=== PATIENT | male | born 1975 | race Caucasian/White ===

== ENCOUNTER → 2020-02-12 13:13 | Outpatient (CLI) | payer OTHER, SELFPAY ==
--- NOTE | 2020-02-12 13:21 | DI.RAD.S_ITS ---
PROCEDURE: FL ARTHROGRAM SHOULDER LT INDICATIONS: ROTATOR CUFF TEAR OF LEFT SHOULDER TECHNIQUE: The indications, alternatives, benefits, risks, and complications of the procedure were explained to the patient. Written informed consent was obtained and placed in the chart. The shoulder was examined fluoroscopically and a site for needle placement chosen for entry into the glenohumeral joint from an anterior approach. The skin was prepped and draped in a sterile fashion, and 1% lidocaine infiltrated from skin down to joint capsule. A spinal needle was inserted into the glenohumeral joint, and a small amount of iodinated contrast media injected to confirm intra-articular placement of the needle tip. This was followed by approximately 12 mL dilute solution of a gadolinium containing MR contrast agent. The needle was removed and a dressing was applied. The patient was given postprocedural instructions and sent to the MR suite for MR imaging. FINDINGS: A single fluoroscopic spot image demonstrates intra-articular location of injected iodinated contrast. IMPRESSION: Successful fluoroscopically guided administration of dilute Gadolinium solution into the shoulder joint for MR arthrogram. Dictated by: Ryan Conde M.D. on 02/12/2020 at 15:33 Approved by: Ryan Conde M.D. on 02/12/2020 at 15:33
--- NOTE | 2020-02-12 13:21 | DI.MRI.S_ITS ---
PROCEDURE: MR SHOULDER LT W CON INDICATIONS: ROTATOR CUFF TEAR OF LEFT SHOULDER TECHNIQUE: After the administration of 12 mL of dilute intra-articular Gadolinium contrast, oblique coronal T1 and T2 spin echo with fat saturation, oblique sagittal T1 spin echo with and without fat saturation, oblique sagittal T2 fast spin echo with fat saturation, axial T1 spin echo with fat saturation through the shoulder. COMPARISON: None. FINDINGS: Image quality: Excellent. Rotator cuff: Supraspinatus tendinopathy with low-grade bursal surface fraying. Infraspinatus tendon appears intact the teres minor and subscapularis tendons appear grossly intact. No atrophy of the rotator cuff muscles. Bones and bursae: No bone marrow contusions or fractures. Mild acromioclavicular joint degeneration. Acromion demonstrates conventional anatomy, without an os acromiale. Mild subacromial-subdeltoid bursitis Capsule and soft tissues: Labrum: Amorphous signal changes and enlargement of the anteroinferior labrum for example image 14/6. There is minimal adjacent osseous change or chondral loss. Age-appropriate fraying of the superior labrum. Long head of the biceps tendon intact. The rotator interval appears normal, without fibrosis. Coracohumeral ligament intact. IMPRESSION: Amorphous hypertrophy of the anteroinferior labrum with ill-defined signal changes probably representing chronic tear with subsequent fibrosis/scarring versus degeneration. No intrasubstance gadolinium signal intensity currently identified. Low-grade supraspinatus tendinopathy and bursal surface fraying Mild subacromial-subdeltoid bursitis Dictated by: Ryan Conde M.D. on 02/12/2020 at 15:33 Approved by: Ryan Conde M.D. on 02/12/2020 at 15:49
== END ==
PROVIDERS: Referring Provider Internal Medicine; Visit Provider Internal Medicine
DX: M75.102 Unspecified rotator cuff tear or rupture of left shoulder, not specified as traumatic (principal); M19.012 Primary osteoarthritis, left shoulder; M75.52 Bursitis of left shoulder
CPT/HCPCS: 23350; 73040; 73222; 77002